=== PATIENT | male | born 1970 | race African-American/Black ===

== ENCOUNTER 2017-04-13 06:35 | Emergency (ER) | payer OTHER ==
[~2017-04-13] VITALS: Ht 182.9 cm; Wt 86.2 kg
[2017-04-13] MEDS ORDERED: PRILOSEC OTC20 MG PO (06:50)
[2017-04-13] MEDS ORDERED: EXCEDRIN EXTRA1 EAC1 PO (06:51)
[2017-04-13] MEDS ORDERED: ONDANSETRON ODT8 MG PO (09:15)
--- NOTE | 2017-04-13 19:03 | EKG ---
[facility] [address] [facility] [place] [address] Signed Sinus tachycardia Incomplete right bundle branch block Borderline ECG No previous ECGs available Confirmed by JOSÉ MIGUEL OLGUIN MD ([id number]) on 04/13/2017 7:02:58 PM Electronically Signed By: JOSÉ MIGUEL OLGUIN MD 04/13/17 1903 PATIENT NAME: YULISA MARY Electrocardiogram DATE OF : 68 PHYSICIAN: JOSÉ MIGUEL OLGUIN MD REPORT #: [id number] REPORT IS CONFIDENTIAL AND NOT TO BE RELEASED WITHOUT AUTHORIZATION
== END 2017-04-13 09:29 | disposition home or self-care (01) ==
LOC: ED 06:35
DX: K52.9 Noninfective gastroenteritis and colitis, unspecified (principal); R55 Syncope and collapse; K21.9 Gastro-esophageal reflux disease without esophagitis; Z79.899 Other long term (current) drug therapy; Z98.890 Other specified postprocedural states
CPT/HCPCS: 80053; 84484; 85025; 93005; 93010; 96360; 99284; J7030